=== PATIENT | female | born 1935 | race Asian ===

== ENCOUNTER 2017-11-30 23:35 | Inpatient (IN) | payer MEDICARE ==
[~2017-11-30] VITALS: Ht 157.5 cm; Wt 73.2 kg
[2017-11-30] MEDS ORDERED: LOVA20 PO (23:55)
[2017-11-30] MEDS ORDERED: AZIL1TAB3 PO (23:55)
[2017-11-30] MEDS ORDERED: LEVO88TA4 PO (23:55)
[2017-11-30] MEDS ORDERED: AMLO-511 PO (23:55)
[2017-11-30] MEDS ORDERED: METF500T4 PO (23:55)
[2017-11-30 23:58] LABS: GLUCOSE,POINT OF CARE 162 MG/DL (70-110)
[2017-12-01 00:26] LABS: BASOPHILS % (AUTO) 0.5 % (0.0-2.0); EOSINOPHILS % (AUTO) 2.2 % (1.0-6.0); HEMATOCRIT 38.8 % (36-46); HEMOGLOBIN 13.1 g/dL (12.0-16.0); LYMPHOCYTES # (AUTO) 2.6 K/uL (1.0-4.8); LYMPHOCYTES % (AUTO) 26.5 % (22.0-44.0); MEAN CORPUSCULAR HEMOGLOBIN 29.3 pg (26.0-34.0); MEAN CORPUSCULAR HGB CONC 33.7 G/dL (31.0-37.0); MEAN CORPUSCULAR VOLUME 87 fL (80-100); MONOCYTES # (AUTO) 0.6 K/uL (0.1-1.0); MONOCYTES % (AUTO) 5.9 % (2.0-9.0); NEUTROPHILS # (AUTO) 6.3 K/uL (1.8-7.7); NEUTROPHILS % (AUTO) 64.9 % (40.0-70.0); PLATELET COUNT (AUTO) 206 K/uL (150-450); RED BLOOD CELL COUNT(AUTO) 4.47 MIL/uL (4.00-5.20); RED CELL DISTRIBUTION WIDTH 14.2 % (11.5-14.5)
[2017-12-01 00:47] LABS: CALCIUM, TOTAL 9.9 mg/dL (8.8-10.5); CREATININE 0.91 mg/dL (0.60-1.30); POTASSIUM 3.5 mmol/L (3.5-5.1)
[2017-12-01 00:52] LABS: ALBUMIN 4.1 g/dL (3.4-5.0); BILIRUBIN,TOTAL 0.3 mg/dL (0.1-1.0); TOTAL PROTEIN, SERUM 8.4 g/dL (6.4-8.2)
[2017-12-01] MEDS ORDERED: ACETAMINOPHEN 325 MG TABLET PO PRN ×2 (02:15→04:45)
[2017-12-01] MEDS ORDERED: ONDANSETRON HCL 4 MG/2 ML VIAL IVP PRN ×2 (02:15→04:45)
[2017-12-01] MEDS ORDERED: 0.9% SODIUM CHLORIDE 10 ML SYRINGE IVP PRN ×2 (02:15→04:45)
[2017-12-01] MEDS ORDERED: NITROGLYCERIN 2% (1 GM=INCH) PACKET TP ONE (02:15)
[2017-12-01] MEDS ORDERED: ASPIRIN 325 MG TABLET PO ONE (02:15)
[2017-12-01 04:05] VITALS: BP 177/76
[2017-12-01 04:13] VITALS: BP 149/78
[2017-12-01] MEDS ORDERED: MAGNESIUM HYDROXIDE SUSPENSION 30 ML UDCUP PO PRN (04:45)
[2017-12-01] MEDS ORDERED: INSULIN ASPART 100 UNITS/ML SQ PRN (04:45)
[2017-12-01] MEDS ORDERED: BISACODYL 10 MG RECTAL RECTAL SUPPOSITORY PR PRN (04:45)
[2017-12-01] MEDS ORDERED: DEXTROSE 50%-WATER 25 GM/50 ML SYRINGE IVP PRN (04:45)
[2017-12-01] MEDS ORDERED: INFLUENZA VIRUS VACCINE QVS 2017-18 (3YR+)/PF 60 MCG/0.5 ML SYRINGE IM ONE (05:15)
[2017-12-01 06:59] LABS: BASOPHILS % (AUTO) 0.9 % (0.0-2.0); EOSINOPHILS % (AUTO) 1.5 % (1.0-6.0); HEMATOCRIT 35.4 % (36-46); HEMOGLOBIN 11.8 g/dL (12.0-16.0); LYMPHOCYTES # (AUTO) 2.4 K/uL (1.0-4.8); LYMPHOCYTES % (AUTO) 27.6 % (22.0-44.0); MEAN CORPUSCULAR HEMOGLOBIN 29.2 pg (26.0-34.0); MEAN CORPUSCULAR HGB CONC 33.4 G/dL (31.0-37.0); MEAN CORPUSCULAR VOLUME 87 fL (80-100); MONOCYTES # (AUTO) 0.4 K/uL (0.1-1.0); MONOCYTES % (AUTO) 4.7 % (2.0-9.0); NEUTROPHILS # (AUTO) 5.7 K/uL (1.8-7.7); NEUTROPHILS % (AUTO) 65.3 % (40.0-70.0); PLATELET COUNT (AUTO) 208 K/uL (150-450); RED BLOOD CELL COUNT(AUTO) 4.05 MIL/uL (4.00-5.20); RED CELL DISTRIBUTION WIDTH 14.2 % (11.5-14.5)
[2017-12-01] MEDS: LEVOTHYROXINE SODIUM 88 MCG TABLET PO SCH (07:05)
[2017-12-01 07:24] LABS: B-TYPE NATRIURETIC PEPTIDE 81 pg/mL (0-100)
[2017-12-01 07:35] LABS: ALANINE AMINOTRANSFERASE 15 U/L (12-78); ALBUMIN 3.7 g/dL (3.4-5.0); ALKALINE PHOSPHATASE 71 U/L (46-116); ANION GAP 5 mmol/L (8-16); ASPARTATE AMINOTRANSFERASE 12 U/L (15-37); BILIRUBIN,TOTAL 0.4 mg/dL (0.1-1.0); CALCIUM, TOTAL 9.5 mg/dL (8.8-10.5); CARBON DIOXIDE 33 mmol/L (22-29); CHLORIDE 100 mmol/L (98-107); CHOL/HDL RATIO 2.9 (3.9-5.7); CHOLESTEROL 162 mg/dL (131-200); FREE T4 (FREE THYROXINE) 1.05 ng/dL (0.76-1.46); GLOMERULAR FILTR. RATE CALC > 60 mL/min (>60); GLUCOSE,RANDOM 111 mg/dL (70-110); HDL CHOLESTEROL 56 mg/dL (40-60); LDL CHOL (CALC.) 96 mg/dL (0-130); PHOSPHORUS 4.2 mg/dL (2.5-4.9); POTASSIUM 3.8 mmol/L (3.5-5.1); SODIUM SERUM 138 mmol/L (136-145); THYROID STIMULATING HORMONE 4.39 uIU/mL (0.36-3.74); TOTAL PROTEIN, SERUM 7.6 g/dL (6.4-8.2); TRIGLYCERIDES 50 mg/dL (15-150); UREA NITROGEN, BLOOD 17 mg/dL (7-18)
[2017-12-01 07:48] VITALS: BP 131/72
[2017-12-01] MEDS: IRBESARTAN 150 MG TABLET PO SCH (08:31)
[2017-12-01] MEDS: PANTOPRAZOLE SODIUM 40 MG DR TABLET PO SCH (08:33)
[2017-12-01] MEDS: ASPIRIN 325 MG EC TABLET PO SCH (08:33)
[2017-12-01] MEDS: LOVASTATIN 20 MG TABLET PO SCH (08:33)
[2017-12-01] MEDS: HEPARIN SODIUM,PORCINE 5,000 UNITS/ML VIAL SQ SCH ×2 (08:34→20:27)
[2017-12-01] MEDS ORDERED: AmLODIPine BESYLATE 5 MG TABLET PO SCH (09:00)
[2017-12-01] MEDS: METOPROLOL TARTRATE 25 MG TABLET PO SCH ×2 (10:50→20:27)
[2017-12-01 11:09] VITALS: BP 154/76
[2017-12-01 15:13] LABS: GLUCOMETER DEV NAME(LOC) 5S 2N; GLUCOSE,POINT OF CARE 82 MG/DL (70-110)
[2017-12-01 15:23] VITALS: BP 152/75
[2017-12-01 20:04] VITALS: BP 154/66
[2017-12-02] VITALS (12 sets, daily range): BP systolic 105–194; BP diastolic 61–92
[2017-12-02] MEDS: LEVOTHYROXINE SODIUM 88 MCG TABLET PO SCH (06:04)
[2017-12-02 06:37] LABS: BASOPHILS % (AUTO) 0.8 % (0.0-2.0); HEMATOCRIT 35.9 % (36-46); HEMOGLOBIN 12.1 g/dL (12.0-16.0); LYMPHOCYTES # (AUTO) 2.3 K/uL (1.0-4.8); LYMPHOCYTES % (AUTO) 35.3 % (22.0-44.0); MEAN CORPUSCULAR HEMOGLOBIN 29.1 pg (26.0-34.0); MEAN CORPUSCULAR HGB CONC 33.6 G/dL (31.0-37.0); MEAN CORPUSCULAR VOLUME 87 fL (80-100); MONOCYTES # (AUTO) 0.4 K/uL (0.1-1.0); MONOCYTES % (AUTO) 6.6 % (2.0-9.0); NEUTROPHILS # (AUTO) 3.5 K/uL (1.8-7.7); NEUTROPHILS % (AUTO) 54.3 % (40.0-70.0); PLATELET COUNT (AUTO) 184 K/uL (150-450); RED BLOOD CELL COUNT(AUTO) 4.15 MIL/uL (4.00-5.20); RED CELL DISTRIBUTION WIDTH 14.1 % (11.5-14.5)
[2017-12-02 08:01] LABS: ALBUMIN 3.5 g/dL (3.4-5.0); BILIRUBIN,TOTAL 0.7 mg/dL (0.1-1.0); CALCIUM, TOTAL 9.1 mg/dL (8.8-10.5); CREATININE 0.9 mg/dL (0.60-1.30); MAGNESIUM 2.1 mg/dL (1.80-2.40); POTASSIUM 3.9 mmol/L (3.5-5.1); TOTAL PROTEIN, SERUM 7.1 g/dL (6.4-8.2)
[2017-12-02] MEDS: HydrALAZINE HCL 20 MG/ML VIAL IVP PRN ×2 (08:34→15:22)
[2017-12-02] MEDS: METOPROLOL TARTRATE 25 MG TABLET PO SCH ×2 (09:00→21:00)
[2017-12-02] MEDS: PANTOPRAZOLE SODIUM 40 MG DR TABLET PO SCH (09:50)
[2017-12-02] MEDS: IRBESARTAN 150 MG TABLET PO SCH (09:50)
[2017-12-02] MEDS: LOVASTATIN 20 MG TABLET PO SCH (09:50)
[2017-12-02] MEDS: HEPARIN SODIUM,PORCINE 5,000 UNITS/ML VIAL SQ SCH (09:50)
[2017-12-02] MEDS: ASPIRIN 325 MG EC TABLET PO SCH (09:50)
[2017-12-02 11:23] LABS: GLUCOMETER DEV NAME(LOC) PVLAB129; GLUCOSE,POINT OF CARE 112 MG/DL (70-110)
[2017-12-02 11:23] LABS: GLUCOMETER DEV NAME(LOC) PVLAB129; GLUCOSE,POINT OF CARE 103 MG/DL (70-110)
[2017-12-02 21:07] LABS: GLUCOMETER DEV NAME(LOC) PVLAB129; GLUCOSE,POINT OF CARE 169 MG/DL (70-110)
[2017-12-03] VITALS (8 sets, daily range): BP systolic 136–175; BP diastolic 62–96
[2017-12-03] MEDS: HEPARIN SODIUM,PORCINE 5,000 UNITS/ML VIAL SQ SCH ×3 (00:38→21:41)
[2017-12-03 07:42] LABS: BASOPHILS % (AUTO) 0.9 % (0.0-2.0); EOSINOPHILS % (AUTO) 2.6 % (1.0-6.0); HEMATOCRIT 37.5 % (36-46); HEMOGLOBIN 12.8 g/dL (12.0-16.0); LYMPHOCYTES % (AUTO) 29.3 % (22.0-44.0); MEAN CORPUSCULAR HEMOGLOBIN 29.5 pg (26.0-34.0); MEAN CORPUSCULAR HGB CONC 34.1 G/dL (31.0-37.0); MEAN CORPUSCULAR VOLUME 87 fL (80-100); MONOCYTES # (AUTO) 0.4 K/uL (0.1-1.0); MONOCYTES % (AUTO) 6.5 % (2.0-9.0); NEUTROPHILS % (AUTO) 60.7 % (40.0-70.0); PLATELET COUNT (AUTO) 200 K/uL (150-450); RED BLOOD CELL COUNT(AUTO) 4.34 MIL/uL (4.00-5.20); RED CELL DISTRIBUTION WIDTH 14.2 % (11.5-14.5)
[2017-12-03 08:09] LABS: ALANINE AMINOTRANSFERASE 14 U/L (12-78); ALBUMIN 3.7 g/dL (3.4-5.0); ALKALINE PHOSPHATASE 65 U/L (46-116); ANION GAP 7 mmol/L (8-16); ASPARTATE AMINOTRANSFERASE 12 U/L (15-37); BILIRUBIN,TOTAL 0.6 mg/dL (0.1-1.0); CALCIUM, TOTAL 9.2 mg/dL (8.8-10.5); CARBON DIOXIDE 32 mmol/L (22-29); CHLORIDE 103 mmol/L (98-107); CREATININE 0.77 mg/dL (0.60-1.30); GLOMERULAR FILTR. RATE CALC > 60 mL/min (>60); GLUCOSE,RANDOM 125 mg/dL (70-110); POTASSIUM 3.5 mmol/L (3.5-5.1); SODIUM SERUM 142 mmol/L (136-145); TOTAL PROTEIN, SERUM 7.5 g/dL (6.4-8.2); UREA NITROGEN, BLOOD 21 mg/dL (7-18)
[2017-12-03] MEDS: METOPROLOL TARTRATE 25 MG TABLET PO SCH ×2 (09:00→21:40)
[2017-12-03] MEDS ORDERED: REGADENOSON 0.4 MG/5 ML PF SYRINGE IVP ONE ×2 (09:58→12:44)
[2017-12-03] MEDS ORDERED: SESTAMIBI TC99M/UD ISOTOPE 1 EA INJ INJ ONE (10:00)
[2017-12-03] MEDS: AmLODIPine BESYLATE 10 MG TABLET PO SCH (11:02)
[2017-12-03] MEDS: LOVASTATIN 20 MG TABLET PO SCH (11:02)
[2017-12-03] MEDS: ASPIRIN 325 MG EC TABLET PO SCH (11:02)
[2017-12-03] MEDS: LEVOTHYROXINE SODIUM 88 MCG TABLET PO SCH (11:02)
[2017-12-03] MEDS: PANTOPRAZOLE SODIUM 40 MG DR TABLET PO SCH (11:03)
[2017-12-03] MEDS: HydrALAZINE HCL 20 MG/ML VIAL IVP PRN (15:57)
[2017-12-03 18:13] LABS: GLUCOMETER DEV NAME(LOC) PVLAB129; GLUCOSE,POINT OF CARE 270 MG/DL (70-110)
[2017-12-03] MEDS ORDERED: HydrALAZINE HCL 25 MG TABLET PO SCH ×2 (21:00)
[2017-12-04 04:48] VITALS: BP 159/89
[2017-12-04 06:16] LABS: EOSINOPHILS % (AUTO) 3.1 % (1.0-6.0); HEMATOCRIT 37.2 % (36-46); HEMOGLOBIN 12.8 g/dL (12.0-16.0); LYMPHOCYTES # (AUTO) 1.9 K/uL (1.0-4.8); LYMPHOCYTES % (AUTO) 26.8 % (22.0-44.0); MEAN CORPUSCULAR HEMOGLOBIN 29.6 pg (26.0-34.0); MEAN CORPUSCULAR HGB CONC 34.3 G/dL (31.0-37.0); MEAN CORPUSCULAR VOLUME 86 fL (80-100); MONOCYTES # (AUTO) 0.4 K/uL (0.1-1.0); MONOCYTES % (AUTO) 6.4 % (2.0-9.0); NEUTROPHILS # (AUTO) 4.4 K/uL (1.8-7.7); NEUTROPHILS % (AUTO) 62.7 % (40.0-70.0); PLATELET COUNT (AUTO) 204 K/uL (150-450); RED BLOOD CELL COUNT(AUTO) 4.31 MIL/uL (4.00-5.20)
[2017-12-04] MEDS: LEVOTHYROXINE SODIUM 88 MCG TABLET PO SCH (06:24)
[2017-12-04 07:05] LABS: ALANINE AMINOTRANSFERASE 16 U/L (12-78); ALBUMIN 3.8 g/dL (3.4-5.0); ALKALINE PHOSPHATASE 71 U/L (46-116); ANION GAP 5 mmol/L (8-16); ASPARTATE AMINOTRANSFERASE 16 U/L (15-37); BILIRUBIN,TOTAL 0.7 mg/dL (0.1-1.0); CALCIUM, TOTAL 9.1 mg/dL (8.8-10.5); CARBON DIOXIDE 32 mmol/L (22-29); CHLORIDE 103 mmol/L (98-107); CREATININE 0.86 mg/dL (0.60-1.30); GLOMERULAR FILTR. RATE CALC > 60 mL/min (>60); GLUCOSE,RANDOM 129 mg/dL (70-110); POTASSIUM 3.9 mmol/L (3.5-5.1); SODIUM SERUM 140 mmol/L (136-145); TOTAL PROTEIN, SERUM 7.7 g/dL (6.4-8.2); UREA NITROGEN, BLOOD 20 mg/dL (7-18)
[2017-12-04 07:24] VITALS: BP 137/76
[2017-12-04] MEDS: LOVASTATIN 20 MG TABLET PO SCH (08:28)
[2017-12-04] MEDS: PANTOPRAZOLE SODIUM 40 MG DR TABLET PO SCH (08:28)
[2017-12-04] MEDS: AmLODIPine BESYLATE 10 MG TABLET PO SCH (08:28)
[2017-12-04] MEDS: HEPARIN SODIUM,PORCINE 5,000 UNITS/ML VIAL SQ SCH (08:33)
[2017-12-04 08:53] LABS: B-TYPE NATRIURETIC PEPTIDE 32 pg/mL (0-100)
[2017-12-04] MEDS ORDERED: ASPIRIN 81 MG EC TABLET PO SCH (09:00)
[2017-12-04] MEDS ORDERED: CARVEDILOL 6.25 MG TABLET PO SCH (09:00)
[2017-12-04] MEDS ORDERED: IRBESARTAN 150 MG TABLET PO SCH (09:00)
[2017-12-04 10:29] LABS: GLUCOMETER DEV NAME(LOC) PVLAB129; GLUCOSE,POINT OF CARE 135 MG/DL (70-110)
[2017-12-04 11:40] VITALS: BP 143/75
[2017-12-04] MEDS ORDERED: ASPI81 PO (11:45)
[2017-12-04] MEDS ORDERED: CARV6 PO (11:46)
[2017-12-04] MEDS ORDERED: IRBE150T51 PO (11:49)
[2017-12-04 14:23] LABS: GLUCOMETER DEV NAME(LOC) PVLAB129; GLUCOSE,POINT OF CARE 150 MG/DL (70-110)
[2017-12-05 06:58] LABS: GLUCOMETER DEV NAME(LOC) 5S 1L; GLUCOSE,POINT OF CARE 120 MG/DL (70-110)
[2017-12-05 06:58] LABS: GLUCOMETER DEV NAME(LOC) 5S 1L; GLUCOSE,POINT OF CARE 113 MG/DL (70-110)
[2017-12-05 06:58] LABS: GLUCOMETER DEV NAME(LOC) 5S 1L; GLUCOSE,POINT OF CARE 77 MG/DL (70-110)
[2017-12-05 06:59] LABS: GLUCOMETER DEV NAME(LOC) 5S 1L; GLUCOSE,POINT OF CARE 100 MG/DL (70-110)
[2017-12-05 06:59] LABS: GLUCOMETER DEV NAME(LOC) 5S 1L; GLUCOSE,POINT OF CARE 140 MG/DL (70-110)
[2017-12-06 15:33] LABS: GLUCOMETER DEV NAME(LOC) 5N 2R; GLUCOSE,POINT OF CARE 112 MG/DL (70-110)
== END 2017-12-04 12:45 | disposition home or self-care (01) | DRG 309 ==
LOC: EMS 23:37 → 5S 12-01 02:00
PROVIDERS: ADMIT Internal Medicine; ATTEND Internal Medicine
DX: I48.0 Paroxysmal atrial fibrillation (principal); I20.0 Unstable angina; D64.9 Anemia, unspecified; E11.9 Type 2 diabetes mellitus without complications; E03.9 Hypothyroidism, unspecified; E78.00 Pure hypercholesterolemia, unspecified; I11.9 Hypertensive heart disease without heart failure; E78.5 Hyperlipidemia, unspecified; Z88.0 Allergy status to penicillin; Z88.2 Allergy status to sulfonamides; Z79.899 Other long term (current) drug therapy; Z28.21 Immunization not carried out because of patient refusal
CPT/HCPCS: 78452; 82962; 83036; 83735; 84100; 84439; 84443; 93005; 93017; 93306; 99285; A9500; J0360; J1644; J2785

== ENCOUNTER 2019-02-12 14:50 | Inpatient (IN) | payer MEDICARE, MEDICAID ==
[~2019-02-12] VITALS: Ht 154.9 cm; Wt 80.1 kg
[~2019-02-12 14:50] MED LIST: AMLO-511 PO; ASPI81 PO; CARV6 PO; IRBE150T51 PO; LEVO88TA4 PO; LOVA20 PO; METF-960 PO
[2019-02-12] MEDS ORDERED: AMLO-511 PO (15:56)
[2019-02-12 16:04] LABS: GLUCOSE,POINT OF CARE 108 MG/DL (70-110)
[2019-02-12 16:47] LABS: EOSINOPHILS % (AUTO) 1.9 % (1.0-6.0); HEMATOCRIT 36.1 % (36-46); HEMOGLOBIN 11.4 g/dL (12.0-16.0); LYMPHOCYTES # (AUTO) 1.4 K/uL (1.0-4.8); LYMPHOCYTES % (AUTO) 24.3 % (22.0-44.0); MEAN CORPUSCULAR HEMOGLOBIN 27.8 pg (26.0-34.0); MEAN CORPUSCULAR HGB CONC 31.7 G/dL (31.0-37.0); MEAN CORPUSCULAR VOLUME 88 fL (80-100); MONOCYTES # (AUTO) 0.3 K/uL (0.1-1.0); NEUTROPHILS # (AUTO) 3.8 K/uL (1.8-7.7); NEUTROPHILS % (AUTO) 66.8 % (40.0-70.0); PLATELET COUNT (AUTO) 185 K/uL (150-450); RED BLOOD CELL COUNT(AUTO) 4.11 MIL/uL (4.00-5.20); RED CELL DISTRIBUTION WIDTH 18.5 % (11.5-14.5)
[2019-02-12 17:11] LABS: CALCIUM, TOTAL 8.6 mg/dL (8.8-10.5); CREATININE 0.95 mg/dL (0.60-1.30)
[2019-02-12 17:18] LABS: ALBUMIN 3.6 g/dL (3.4-5.0); BILIRUBIN,TOTAL 0.8 mg/dL (0.1-1.0); TOTAL PROTEIN, SERUM 6.8 g/dL (6.4-8.2)
[2019-02-12] MEDS ORDERED: ACETAMINOPHEN 325 MG TABLET PO PRN ×2 (17:30→20:45)
[2019-02-12] MEDS ORDERED: ONDANSETRON HCL 4 MG/2 ML VIAL IVP PRN (17:30)
[2019-02-12] MEDS ORDERED: FUROSEMIDE 40 MG/4 ML VIAL IVP ONE (17:30)
[2019-02-12] MEDS ORDERED: DEXTROSE 50%-WATER 25 GM/50 ML SYRINGE IVP PRN (20:45)
[2019-02-12] MEDS ORDERED: INSULIN LISPRO 100 UNITS/ML SQ PRN (20:45)
[2019-02-12] MEDS ORDERED: ALBUTEROL SULFATE 2.5 MG/0.5 ML NEB SOLUTION NEB PRN (20:45)
[2019-02-12] MEDS ORDERED: MAGNESIUM HYDROXIDE SUSPENSION 30 ML UDCUP PO PRN (20:45)
[2019-02-12] MEDS: CARVEDILOL 6.25 MG TABLET PO SCH (21:33)
[2019-02-12] MEDS: DOCUSATE SODIUM 100 MG CAPSULE PO SCH (21:33)
[2019-02-12 21:43] VITALS: BP 156/61
[2019-02-12 23:59] LABS: GLUCOMETER DEV NAME(LOC) 5S.2; GLUCOSE,POINT OF CARE 113 MG/DL (70-110)
[2019-02-13 00:05] VITALS: BP 125/74
[2019-02-13 05:35] VITALS: BP 140/57
[2019-02-13 06:22] LABS: ANION GAP 7 mmol/L (8-16); CALCIUM, TOTAL 8.7 mg/dL (8.8-10.5); CARBON DIOXIDE 31 mmol/L (22-29); CHLORIDE 104 mmol/L (98-107); CREATININE 0.86 mg/dL (0.60-1.30); GLUCOSE,RANDOM 94 mg/dL (70-110); POTASSIUM 3.4 mmol/L (3.5-5.1); SODIUM SERUM 142 mmol/L (136-145); UREA NITROGEN, BLOOD 14 mg/dL (7-18)
[2019-02-13 06:32] LABS: GLOMERULAR FILTR. RATE CALC > 60 mL/min (>60)
[2019-02-13 07:38] VITALS: BP 131/71
[2019-02-13] MEDS: ASPIRIN 81 MG CHEWABLE TABLET PO SCH (08:44)
[2019-02-13] MEDS: DOCUSATE SODIUM 100 MG CAPSULE PO SCH ×2 (08:44→21:16)
[2019-02-13] MEDS: CARVEDILOL 6.25 MG TABLET PO SCH ×2 (08:44→21:16)
[2019-02-13] MEDS: FAMOTIDINE 20 MG TABLET PO SCH (08:44)
[2019-02-13] MEDS ORDERED: FUROSEMIDE 40 MG/4 ML VIAL IVP SCH (09:00)
[2019-02-13] MEDS ORDERED: POTASSIUM CHLORIDE 10 MEQ ER TABLET PO ONE (10:30)
[2019-02-13 11:20] VITALS: BP 137/68
[2019-02-13 12:45] LABS: GLUCOMETER DEV NAME(LOC) 5N.1; GLUCOSE,POINT OF CARE 104 MG/DL (70-110)
[2019-02-13 12:45] LABS: GLUCOMETER DEV NAME(LOC) 5N.1; GLUCOSE,POINT OF CARE 109 MG/DL (70-110)
[2019-02-13 15:28] VITALS: BP 152/85
[2019-02-13] MEDS ORDERED: FUROSEMIDE 40 MG/4 ML VIAL IVP ONE (16:00)
[2019-02-13 20:32] VITALS: BP 158/86
[2019-02-14 00:17] VITALS: BP 157/78
[2019-02-14 04:35] VITALS: BP 124/71
[2019-02-14 06:06] LABS: HEMOGLOBIN 10.4 g/dL (12.0-16.0); LYMPHOCYTES # (AUTO) 1.5 K/uL (1.0-4.8); MEAN CORPUSCULAR HEMOGLOBIN 28.3 pg (26.0-34.0); MEAN CORPUSCULAR HGB CONC 32.4 G/dL (31.0-37.0); MEAN CORPUSCULAR VOLUME 87 fL (80-100); MONOCYTES # (AUTO) 0.4 K/uL (0.1-1.0); MONOCYTES % (AUTO) 9.1 % (2.0-9.0); NEUTROPHILS # (AUTO) 2.4 K/uL (1.8-7.7); NEUTROPHILS % (AUTO) 53.9 % (40.0-70.0); PLATELET COUNT (AUTO) 157 K/uL (150-450); RED BLOOD CELL COUNT(AUTO) 3.66 MIL/uL (4.00-5.20); RED CELL DISTRIBUTION WIDTH 18.5 % (11.5-14.5)
[2019-02-14 06:21] LABS: ALBUMIN 3.2 g/dL (3.4-5.0); BILIRUBIN,TOTAL 0.8 mg/dL (0.1-1.0); CALCIUM, TOTAL 8.6 mg/dL (8.8-10.5); CREATININE 1.09 mg/dL (0.60-1.30); POTASSIUM 3.4 mmol/L (3.5-5.1); TOTAL PROTEIN, SERUM 5.8 g/dL (6.4-8.2)
[2019-02-14 07:25] VITALS: BP 147/81
[2019-02-14] MEDS: CARVEDILOL 6.25 MG TABLET PO SCH (07:56)
[2019-02-14] MEDS: DOCUSATE SODIUM 100 MG CAPSULE PO SCH (07:57)
[2019-02-14] MEDS: ASPIRIN 81 MG CHEWABLE TABLET PO SCH (07:57)
[2019-02-14] MEDS: FAMOTIDINE 20 MG TABLET PO SCH (07:57)
[2019-02-14] MEDS ORDERED: FUROSEMIDE 40 MG TABLET PO SCH (09:00)
[2019-02-14] MEDS ORDERED: FUROSEMIDE 20 MG TABLET PO SCH (09:00)
[2019-02-14] MEDS ORDERED: POTASSIUM CHLORIDE 20 MEQ ER TABLET PO ONE (10:30)
[2019-02-14] MEDS ORDERED: FURO40 PO (11:12)
[2019-02-14] MEDS ORDERED: KDUR10 PO (11:13)
[2019-02-14] MEDS ORDERED: APIX5TAB PO (11:13)
[2019-02-14 11:30] VITALS: BP 159/89
[2019-02-14 11:40] LABS: GLUCOMETER DEV NAME(LOC) 5S.2; GLUCOSE,POINT OF CARE 109 MG/DL (70-110)
[2019-02-15 07:24] LABS: GLUCOMETER DEV NAME(LOC) 5N.1; GLUCOSE,POINT OF CARE 91 MG/DL (70-110)
[2019-02-15 07:24] LABS: GLUCOMETER DEV NAME(LOC) 5N.1; GLUCOSE,POINT OF CARE 108 MG/DL (70-110)
== END 2019-02-14 14:25 | disposition home or self-care (01) | DRG 293 ==
LOC: EMS 14:51 → 5S 20:21
PROVIDERS: ADMIT Internal Medicine; ATTEND Internal Medicine
DX: I11.0 Hypertensive heart disease with heart failure (principal); I48.0 Paroxysmal atrial fibrillation; I50.23 Acute on chronic systolic (congestive) heart failure; E11.9 Type 2 diabetes mellitus without complications; E03.9 Hypothyroidism, unspecified; E78.00 Pure hypercholesterolemia, unspecified; E78.5 Hyperlipidemia, unspecified; Z88.0 Allergy status to penicillin; Z88.2 Allergy status to sulfonamides
CPT/HCPCS: 93005; 93306; 96372; 96374; 96375; G0378; J1940

== ENCOUNTER 2019-03-01 10:02 | Inpatient (IN) | payer MEDICARE, MEDICAID ==
[~2019-03-01] VITALS: Ht 154.9 cm; Wt 73.7 kg
[~2019-03-01 10:02] MED LIST changes: -AMLO-511 PO; +APIX5TAB PO; +FURO40 PO; +KDUR10 PO
[2019-03-01] MEDS ORDERED: ASPIRIN 81 MG CHEWABLE TABLET PO ONE (11:00)
[2019-03-01 11:16] LABS: BASOPHILS % (AUTO) 1.1 % (0.0-2.0); EOSINOPHILS % (AUTO) 2.4 % (1.0-6.0); HEMATOCRIT 34.9 % (36-46); HEMOGLOBIN 11.1 g/dL (12.0-16.0); LYMPHOCYTES # (AUTO) 1.3 K/uL (1.0-4.8); LYMPHOCYTES % (AUTO) 25.6 % (22.0-44.0); MEAN CORPUSCULAR HEMOGLOBIN 27.9 pg (26.0-34.0); MEAN CORPUSCULAR HGB CONC 31.8 G/dL (31.0-37.0); MEAN CORPUSCULAR VOLUME 88 fL (80-100); MONOCYTES # (AUTO) 0.4 K/uL (0.1-1.0); MONOCYTES % (AUTO) 7.4 % (2.0-9.0); NEUTROPHILS # (AUTO) 3.3 K/uL (1.8-7.7); NEUTROPHILS % (AUTO) 63.5 % (40.0-70.0); PLATELET COUNT (AUTO) 162 K/uL (150-450); RED BLOOD CELL COUNT(AUTO) 3.98 MIL/uL (4.00-5.20); RED CELL DISTRIBUTION WIDTH 18.1 % (11.5-14.5)
[2019-03-01 11:28] LABS: CREATININE 1.22 mg/dL (0.60-1.30); POTASSIUM 4.5 mmol/L (3.5-5.1)
[2019-03-01 11:32] LABS: APPEARANCE,URINE CLEAR (CLEAR); BILIRUBIN,URINE NEGATIVE (NEGATIVE); GLUCOSE, URINE (UA) NEGATIVE (NEGATIVE); KETONES,URINE NEGATIVE (NEGATIVE); LEUKOCYTE ESTERASE ,URINE TRACE (NEGATIVE); NITRATE,URINE NEGATIVE (NEGATIVE); OCCULT BLOOD,URINE NEGATIVE (NEGATIVE); PH,URINE 5.5 (5.0-8.0); PROTEIN,URINE NEGATIVE (NEGATIVE); UROBILINOGEN,URINE 0.2 mg/dL (<=1.0)
[2019-03-01 11:36] LABS: ALBUMIN 3.8 g/dL (3.4-5.0); BILIRUBIN,TOTAL 0.8 mg/dL (0.1-1.0)
[2019-03-01 11:43] LABS: BACTERIA,URINE None Seen /HPF (None Seen); RBC,URINE None Seen /HPF (0-2); WBC,URINE 0-2 /HPF (0-5)
[2019-03-01] MEDS ORDERED: NITROGLYCERIN 2% (1 GM=INCH) PACKET TP ONE (12:00)
[2019-03-01] MEDS ORDERED: FUROSEMIDE 40 MG/4 ML VIAL IVP ONE (12:00)
[2019-03-01 12:14] LABS: THYROID STIMULATING HORMONE 6.99 uIU/mL (0.36-3.74)
[2019-03-01] MEDS ORDERED: NITROGLYCERIN 0.4 MG SUBLINGUAL TABLET #25 SL ONE (13:15)
[2019-03-01] MEDS ORDERED: ONDANSETRON HCL 4 MG/2 ML VIAL IVP PRN (13:30)
[2019-03-01] MEDS ORDERED: 0.9% SODIUM CHLORIDE 10 ML SYRINGE IVP PRN (13:30)
[2019-03-01] MEDS ORDERED: ACETAMINOPHEN 325 MG TABLET PO PRN (13:30)
[2019-03-01 20:44] VITALS: BP 140/79
[2019-03-02] VITALS (7 sets, daily range): BP systolic 139–159; BP diastolic 79–97
[2019-03-02 06:48] LABS: BASOPHILS % (AUTO) 1.4 % (0.0-2.0); EOSINOPHILS % (AUTO) 3.2 % (1.0-6.0); HEMATOCRIT 31.3 % (36-46); HEMOGLOBIN 10.1 g/dL (12.0-16.0); LYMPHOCYTES # (AUTO) 1.2 K/uL (1.0-4.8); MEAN CORPUSCULAR HGB CONC 32.4 G/dL (31.0-37.0); MEAN CORPUSCULAR VOLUME 87 fL (80-100); MONOCYTES # (AUTO) 0.3 K/uL (0.1-1.0); MONOCYTES % (AUTO) 8.6 % (2.0-9.0); NEUTROPHILS # (AUTO) 2.2 K/uL (1.8-7.7); NEUTROPHILS % (AUTO) 55.8 % (40.0-70.0); PLATELET COUNT (AUTO) 150 K/uL (150-450); RED BLOOD CELL COUNT(AUTO) 3.61 MIL/uL (4.00-5.20); RED CELL DISTRIBUTION WIDTH 17.8 % (11.5-14.5)
[2019-03-02 07:00] LABS: INR 1.1 (0.9-1.1); PROTHROMBIN TIME 11.4 SEC (9.4-11.6)
[2019-03-02 07:28] LABS: ALBUMIN 3.4 g/dL (3.4-5.0); BILIRUBIN,TOTAL 0.9 mg/dL (0.1-1.0); CALCIUM, TOTAL 8.8 mg/dL (8.8-10.5); CREATININE 1.09 mg/dL (0.60-1.30); POTASSIUM 3.7 mmol/L (3.5-5.1); TOTAL PROTEIN, SERUM 6.1 g/dL (6.4-8.2)
[2019-03-02 09:14] LABS: GLUCOMETER DEV NAME(LOC) 5S.1; GLUCOSE,POINT OF CARE 132 MG/DL (70-110)
[2019-03-02 09:14] LABS: GLUCOMETER DEV NAME(LOC) 5S.2; GLUCOSE,POINT OF CARE 92 MG/DL (70-110)
[2019-03-02] MEDS ORDERED: IRBESARTAN 150 MG TABLET PO SCH (11:00)
[2019-03-02] MEDS ORDERED: ALBUTEROL SULFATE 2.5 MG/0.5 ML NEB SOLUTION NEB PRN (11:00)
[2019-03-02] MEDS ORDERED: GLUCAGON,HUMAN RECOMBINANT 1 MG VIAL IM PRN (11:00)
[2019-03-02] MEDS ORDERED: DEXTROSE 50%-WATER 25 GM/50 ML SYG IVP PRN (11:00)
[2019-03-02] MEDS ORDERED: 0.9% SODIUM CHLORIDE 10 ML SYRINGE IVP PRN (11:00)
[2019-03-02] MEDS ORDERED: ZOLPIDEM TARTRATE 5 MG TABLET PO PRN (11:00)
[2019-03-02] MEDS ORDERED: ONDANSETRON HCL 4 MG/2 ML VIAL IVP PRN (11:00)
[2019-03-02] MEDS ORDERED: IPRATROPIUM BROMIDE 0.5 MG/2.5 ML NEB SOLUTION NEB PRN (11:00)
[2019-03-02] MEDS ORDERED: INSULIN LISPRO 100 UNITS/ML SQ PRN ×2 (11:00)
[2019-03-02] MEDS: CARVEDILOL 6.25 MG TABLET PO SCH ×2 (11:54→22:34)
[2019-03-02] MEDS: POTASSIUM CHLORIDE 10 MEQ ER TABLET PO SCH (11:54)
[2019-03-02] MEDS: LEVOTHYROXINE SODIUM 88 MCG TABLET PO SCH (11:54)
[2019-03-02] MEDS: PANTOPRAZOLE SODIUM 40 MG/VIAL IVP SCH (11:54)
[2019-03-02] MEDS: APIXABAN 5 MG TABLET PO SCH ×2 (11:54→22:34)
[2019-03-02] MEDS: ALBUTEROL SULFATE 2.5 MG/0.5 ML NEB SOLUTION NEB SCH ×2 (14:20→21:03)
[2019-03-02] MEDS: IPRATROPIUM BROMIDE 0.5 MG/2.5 ML NEB SOLUTION NEB SCH ×2 (14:20→21:02)
[2019-03-02] MEDS: FUROSEMIDE 20 MG/2 ML VIAL IVP SCH ×2 (16:53→22:36)
[2019-03-02] MEDS: MetFORMIN HCL 500 MG TABLET PO SCH (17:16)
[2019-03-02 17:24] LABS: GLUCOMETER DEV NAME(LOC) 5N.1; GLUCOSE,POINT OF CARE 98 MG/DL (70-110)
[2019-03-02 18:20] LABS: GLUCOMETER DEV NAME(LOC) 5S.2; GLUCOSE,POINT OF CARE 103 MG/DL (70-110)
[2019-03-03] MEDS: ALBUTEROL SULFATE 2.5 MG/0.5 ML NEB SOLUTION NEB SCH ×3 (02:00→14:19)
[2019-03-03] MEDS: IPRATROPIUM BROMIDE 0.5 MG/2.5 ML NEB SOLUTION NEB SCH ×3 (02:00→14:20)
[2019-03-03 05:38] LABS: BASOPHILS % (AUTO) 1.1 % (0.0-2.0); HEMATOCRIT 31.7 % (36-46); HEMOGLOBIN 10.3 g/dL (12.0-16.0); LYMPHOCYTES # (AUTO) 1.5 K/uL (1.0-4.8); LYMPHOCYTES % (AUTO) 32.1 % (22.0-44.0); MEAN CORPUSCULAR HEMOGLOBIN 28.3 pg (26.0-34.0); MEAN CORPUSCULAR HGB CONC 32.6 G/dL (31.0-37.0); MEAN CORPUSCULAR VOLUME 87 fL (80-100); MONOCYTES # (AUTO) 0.4 K/uL (0.1-1.0); MONOCYTES % (AUTO) 8.4 % (2.0-9.0); NEUTROPHILS # (AUTO) 2.6 K/uL (1.8-7.7); NEUTROPHILS % (AUTO) 55.4 % (40.0-70.0); PLATELET COUNT (AUTO) 152 K/uL (150-450); RED BLOOD CELL COUNT(AUTO) 3.65 MIL/uL (4.00-5.20); RED CELL DISTRIBUTION WIDTH 17.8 % (11.5-14.5)
[2019-03-03 05:39] VITALS: BP 154/76
[2019-03-03 05:47] LABS: CALCIUM, TOTAL 8.9 mg/dL (8.8-10.5); CREATININE 1.14 mg/dL (0.60-1.30); MAGNESIUM 2.1 mg/dL (1.80-2.40); POTASSIUM 3.6 mmol/L (3.5-5.1)
[2019-03-03 05:50] LABS: GLUCOMETER DEV NAME(LOC) 5S.2; GLUCOSE,POINT OF CARE 116 MG/DL (70-110)
[2019-03-03 06:40] LABS: GLUCOMETER DEV NAME(LOC) 5S.1; GLUCOSE,POINT OF CARE 136 MG/DL (70-110)
[2019-03-03] MEDS: LEVOTHYROXINE SODIUM 88 MCG TABLET PO SCH (06:42)
[2019-03-03 07:17] VITALS: BP 169/95
[2019-03-03] MEDS: APIXABAN 5 MG TABLET PO SCH (08:21)
[2019-03-03] MEDS: MetFORMIN HCL 500 MG TABLET PO SCH (08:21)
[2019-03-03] MEDS: CARVEDILOL 6.25 MG TABLET PO SCH (08:21)
[2019-03-03] MEDS: POTASSIUM CHLORIDE 10 MEQ ER TABLET PO SCH (08:21)
[2019-03-03] MEDS: FUROSEMIDE 20 MG/2 ML VIAL IVP SCH ×2 (08:22→16:06)
[2019-03-03] MEDS: PANTOPRAZOLE SODIUM 40 MG/VIAL IVP SCH (08:23)
[2019-03-03] MEDS ORDERED: IRBESARTAN 150 MG TABLET PO SCH (09:00)
[2019-03-03] MEDS ORDERED: LOVASTATIN 20 MG TABLET PO SCH (09:00)
[2019-03-03 10:57] VITALS: BP 141/83
[2019-03-03 15:03] VITALS: BP 153/88
[2019-03-04 04:39] LABS: GLUCOMETER DEV NAME(LOC) 5S.2; GLUCOSE,POINT OF CARE 103 MG/DL (70-110)
[2019-03-05 06:39] LABS: GLUCOMETER DEV NAME(LOC) 5S.1; GLUCOSE,POINT OF CARE 139 MG/DL (70-110)
== END 2019-03-03 17:15 | disposition home or self-care (01) | DRG 293 ==
LOC: EMS 10:03 → 5S 18:00
PROVIDERS: ADMIT Internal Medicine; ATTEND Internal Medicine
DX: I11.0 Hypertensive heart disease with heart failure (principal); E11.9 Type 2 diabetes mellitus without complications; I50.33 Acute on chronic diastolic (congestive) heart failure; E78.00 Pure hypercholesterolemia, unspecified; E03.9 Hypothyroidism, unspecified; E78.5 Hyperlipidemia, unspecified; I48.2 Chronic atrial fibrillation; Z88.0 Allergy status to penicillin; Z88.1 Allergy status to other antibiotic agents
CPT/HCPCS: 83735; 84443; 87081; 93005; 94640; 96374; C9113; G0378; J1940

== ENCOUNTER 2019-04-13 08:41 | Emergency (ER) | payer MEDICARE, MEDICAID ==
[~2019-04-13] VITALS: Ht 152.4 cm; Wt 82.3 kg
[~2019-04-13 08:41] MED LIST changes: -ASPI81 PO
[2019-04-13] MEDS ORDERED: DEXTROSE 50%-WATER 25 GM/50 ML SYRINGE IVP ONE (09:00)
[2019-04-13 09:04] LABS: GLUCOSE,POINT OF CARE 42 MG/DL (70-110)
[2019-04-13 09:54] LABS: BASOPHILS % (AUTO) 0.5 % (0.0-2.0); EOSINOPHILS % (AUTO) 0.6 % (1.0-6.0); HEMATOCRIT 30.5 % (36-46); HEMOGLOBIN 9.9 g/dL (12.0-16.0); LYMPHOCYTES # (AUTO) 0.7 K/uL (1.0-4.8); LYMPHOCYTES % (AUTO) 11.9 % (22.0-44.0); MEAN CORPUSCULAR HEMOGLOBIN 28.1 pg (26.0-34.0); MEAN CORPUSCULAR HGB CONC 32.3 G/dL (31.0-37.0); MEAN CORPUSCULAR VOLUME 87 fL (80-100); MONOCYTES # (AUTO) 0.2 K/uL (0.1-1.0); MONOCYTES % (AUTO) 3.8 % (2.0-9.0); NEUTROPHILS # (AUTO) 4.7 K/uL (1.8-7.7); NEUTROPHILS % (AUTO) 83.2 % (40.0-70.0); PLATELET COUNT (AUTO) 137 K/uL (150-450); RED BLOOD CELL COUNT(AUTO) 3.51 MIL/uL (4.00-5.20); RED CELL DISTRIBUTION WIDTH 16.8 % (11.5-14.5)
[2019-04-13 10:04] LABS: CALCIUM, TOTAL 8.1 mg/dL (8.8-10.5); CREATININE 1.51 mg/dL (0.60-1.30); POTASSIUM 4.2 mmol/L (3.5-5.1)
[2019-04-13 10:10] LABS: ALBUMIN 3.5 g/dL (3.4-5.0); BILIRUBIN,TOTAL 0.8 mg/dL (0.1-1.0); TOTAL PROTEIN, SERUM 6.8 g/dL (6.4-8.2)
[2019-04-13 10:13] LABS: APPEARANCE,URINE CLEAR (CLEAR); BILIRUBIN,URINE NEGATIVE (NEGATIVE); GLUCOSE, URINE (UA) 100 mg/dL (NEGATIVE); KETONES,URINE NEGATIVE (NEGATIVE); LEUKOCYTE ESTERASE ,URINE NEGATIVE (NEGATIVE); NITRATE,URINE NEGATIVE (NEGATIVE); OCCULT BLOOD,URINE NEGATIVE (NEGATIVE); PROTEIN,URINE NEGATIVE (NEGATIVE); UROBILINOGEN,URINE 0.2 mg/dL (<=1.0)
[2019-04-13 10:24] LABS: GLUCOSE,POINT OF CARE 122 MG/DL (70-110)
[2019-04-13 10:26] LABS: BACTERIA,URINE None Seen /HPF (None Seen); RBC,URINE None Seen /HPF (0-2); SQUAMOUS EPITHELIAL CELL,UR Rare /LPF (None Seen); WBC,URINE None Seen /HPF (0-5)
[2019-04-13 13:15] VITALS: BP 168/92
== END 2019-04-13 13:18 | disposition home or self-care (01) ==
LOC: EMS 08:43
DX: K59.00 Constipation, unspecified (principal); R18.8 Other ascites; I11.0 Hypertensive heart disease with heart failure; I50.9 Heart failure, unspecified; E11.9 Type 2 diabetes mellitus without complications; I48.91 Unspecified atrial fibrillation; E78.00 Pure hypercholesterolemia, unspecified; E03.9 Hypothyroidism, unspecified; Z88.0 Allergy status to penicillin; Z88.2 Allergy status to sulfonamides; Z79.899 Other long term (current) drug therapy
CPT/HCPCS: 74022; 76700; 93005; 96374

== ENCOUNTER 2019-05-03 04:03 | Inpatient (IN) | payer MEDICARE, MEDICAID ==
[~2019-05-03] VITALS: Ht 154.9 cm; Wt 76.4 kg
[~2019-05-03 04:03] MED LIST changes: -METF-960 PO
[2019-05-03 04:19] LABS: GLUCOSE,POINT OF CARE 84 MG/DL (70-110)
[2019-05-03 06:25] LABS: BASOPHILS % (AUTO) 1.4 % (0.0-2.0); EOSINOPHILS % (AUTO) 1.8 % (1.0-6.0); HEMATOCRIT 31.5 % (36-46); HEMOGLOBIN 9.8 g/dL (12.0-16.0); LYMPHOCYTES % (AUTO) 17.5 % (22.0-44.0); MEAN CORPUSCULAR HEMOGLOBIN 27.4 pg (26.0-34.0); MEAN CORPUSCULAR VOLUME 89 fL (80-100); MONOCYTES # (AUTO) 0.3 K/uL (0.1-1.0); MONOCYTES % (AUTO) 6.1 % (2.0-9.0); NEUTROPHILS # (AUTO) 4.1 K/uL (1.8-7.7); NEUTROPHILS % (AUTO) 73.2 % (40.0-70.0); PLATELET COUNT (AUTO) 118 K/uL (150-450); RED BLOOD CELL COUNT(AUTO) 3.56 MIL/uL (4.00-5.20); RED CELL DISTRIBUTION WIDTH 16.6 % (11.5-14.5)
[2019-05-03 06:36] LABS: CREATININE 1.71 mg/dL (0.60-1.30)
[2019-05-03 06:42] LABS: ALBUMIN 3.5 g/dL (3.4-5.0); BILIRUBIN,TOTAL 1.2 mg/dL (0.1-1.0)
[2019-05-03] MEDS ORDERED: FUROSEMIDE 40 MG/4 ML VIAL IVP ONE (07:15)
[2019-05-03] MEDS ORDERED: ACETAMINOPHEN 325 MG TABLET PO PRN ×2 (08:30→17:30)
[2019-05-03] MEDS ORDERED: ONDANSETRON HCL 4 MG/2 ML VIAL IVP PRN ×2 (08:30→17:30)
[2019-05-03] MEDS ORDERED: MORPHINE SULFATE 2 MG/ML SYRINGE IVP PRN (17:30)
[2019-05-03] MEDS ORDERED: MAGNESIUM HYDROXIDE SUSPENSION 30 ML UDCUP PO PRN (17:30)
[2019-05-03] MEDS ORDERED: ZOLPIDEM TARTRATE 5 MG TABLET PO PRN (17:30)
[2019-05-03] MEDS ORDERED: BISACODYL 10 MG RECTAL RECTAL SUPPOSITORY PR PRN (17:30)
[2019-05-03] MEDS ORDERED: HYDROCODONE/ACETAMINOPHEN 5-325 MG TABLET PO PRN (17:30)
[2019-05-03 18:52] VITALS: BP 157/94
[2019-05-03 19:32] VITALS: BP 160/94
[2019-05-03] MEDS: DOCUSATE SODIUM 100 MG CAPSULE PO SCH (19:41)
[2019-05-03] MEDS: FUROSEMIDE 20 MG/2 ML VIAL IVP SCH (19:41)
[2019-05-03] MEDS: CARVEDILOL 6.25 MG TABLET PO SCH (19:41)
[2019-05-03] MEDS: APIXABAN 5 MG TABLET PO SCH (20:46)
[2019-05-03 21:15] VITALS: BP 119/67
[2019-05-03 23:39] VITALS: BP 104/63
[2019-05-04 04:48] VITALS: BP 132/69
[2019-05-04] MEDS ORDERED: LEVOTHYROXINE SODIUM 88 MCG TABLET PO SCH (06:30)
[2019-05-04 07:55] VITALS: BP 142/80
[2019-05-04] MEDS: CARVEDILOL 6.25 MG TABLET PO SCH ×2 (08:58→20:43)
[2019-05-04] MEDS: PANTOPRAZOLE SODIUM 40 MG DR TABLET PO SCH (08:58)
[2019-05-04] MEDS: LOVASTATIN 20 MG TABLET PO SCH (08:58)
[2019-05-04] MEDS: DOCUSATE SODIUM 100 MG CAPSULE PO SCH ×2 (08:58→20:43)
[2019-05-04] MEDS: APIXABAN 5 MG TABLET PO SCH ×2 (08:58→20:43)
[2019-05-04] MEDS: ASPIRIN 81 MG EC TABLET PO SCH (08:59)
[2019-05-04] MEDS: FUROSEMIDE 20 MG/2 ML VIAL IVP SCH (08:59)
[2019-05-04] MEDS: IRBESARTAN 150 MG TABLET PO SCH (10:43)
[2019-05-04 11:18] VITALS: BP 141/77
[2019-05-04 12:57] LABS: BASOPHILS % (AUTO) 0.8 % (0.0-2.0); EOSINOPHILS % (AUTO) 2.8 % (1.0-6.0); HEMATOCRIT 29.4 % (36-46); HEMOGLOBIN 9.3 g/dL (12.0-16.0); LYMPHOCYTES % (AUTO) 22.1 % (22.0-44.0); MEAN CORPUSCULAR HEMOGLOBIN 27.9 pg (26.0-34.0); MEAN CORPUSCULAR HGB CONC 31.7 G/dL (31.0-37.0); MEAN CORPUSCULAR VOLUME 88 fL (80-100); MONOCYTES # (AUTO) 0.4 K/uL (0.1-1.0); NEUTROPHILS # (AUTO) 2.9 K/uL (1.8-7.7); NEUTROPHILS % (AUTO) 66.3 % (40.0-70.0); PLATELET COUNT (AUTO) 105 K/uL (150-450); RED BLOOD CELL COUNT(AUTO) 3.35 MIL/uL (4.00-5.20); RED CELL DISTRIBUTION WIDTH 16.9 % (11.5-14.5)
[2019-05-04 13:13] LABS: CALCIUM, TOTAL 8.6 mg/dL (8.8-10.5); CREATININE 1.67 mg/dL (0.60-1.30)
[2019-05-04 13:20] LABS: THYROID STIMULATING HORMONE 6.98 uIU/mL (0.36-3.74); TOTAL PROTEIN, SERUM 6.3 g/dL (6.4-8.2)
[2019-05-04] MEDS: SPIRONOLACTONE 25 MG TABLET PO SCH (14:12)
[2019-05-04 16:17] VITALS: BP 124/76
[2019-05-04 19:47] VITALS: BP 137/75
[2019-05-04] MEDS: FUROSEMIDE 40 MG/4 ML VIAL IVP SCH (20:43)
[2019-05-05 00:26] VITALS: BP 155/88
[2019-05-05 04:57] VITALS: BP 157/94
[2019-05-05 05:47] LABS: BASOPHILS % (AUTO) 1.1 % (0.0-2.0); EOSINOPHILS % (AUTO) 2.8 % (1.0-6.0); HEMATOCRIT 28.3 % (36-46); LYMPHOCYTES # (AUTO) 1.1 K/uL (1.0-4.8); LYMPHOCYTES % (AUTO) 25.6 % (22.0-44.0); MEAN CORPUSCULAR HEMOGLOBIN 27.9 pg (26.0-34.0); MEAN CORPUSCULAR HGB CONC 31.9 G/dL (31.0-37.0); MEAN CORPUSCULAR VOLUME 88 fL (80-100); MONOCYTES # (AUTO) 0.4 K/uL (0.1-1.0); MONOCYTES % (AUTO) 9.7 % (2.0-9.0); NEUTROPHILS # (AUTO) 2.7 K/uL (1.8-7.7); NEUTROPHILS % (AUTO) 60.8 % (40.0-70.0); PLATELET COUNT (AUTO) 112 K/uL (150-450); RED BLOOD CELL COUNT(AUTO) 3.23 MIL/uL (4.00-5.20); RED CELL DISTRIBUTION WIDTH 16.2 % (11.5-14.5)
[2019-05-05 06:14] LABS: ALBUMIN 3.1 g/dL (3.4-5.0); BILIRUBIN,TOTAL 1.1 mg/dL (0.1-1.0); CALCIUM, TOTAL 8.6 mg/dL (8.8-10.5); CREATININE 1.58 mg/dL (0.60-1.30); TOTAL PROTEIN, SERUM 6.2 g/dL (6.4-8.2)
[2019-05-05] MEDS ORDERED: LEVOTHYROXINE SODIUM 100 MCG TABLET PO SCH (06:30)
[2019-05-05] MEDS: ASPIRIN 81 MG EC TABLET PO SCH (07:41)
[2019-05-05] MEDS: FUROSEMIDE 40 MG/4 ML VIAL IVP SCH (07:41)
[2019-05-05] MEDS: IRBESARTAN 150 MG TABLET PO SCH (07:41)
[2019-05-05] MEDS: PANTOPRAZOLE SODIUM 40 MG DR TABLET PO SCH (07:42)
[2019-05-05] MEDS: SPIRONOLACTONE 25 MG TABLET PO SCH (07:42)
[2019-05-05] MEDS: APIXABAN 5 MG TABLET PO SCH (07:42)
[2019-05-05] MEDS: LOVASTATIN 20 MG TABLET PO SCH (07:42)
[2019-05-05] MEDS: CARVEDILOL 6.25 MG TABLET PO SCH (07:42)
[2019-05-05] MEDS: DOCUSATE SODIUM 100 MG CAPSULE PO SCH (07:42)
[2019-05-05 07:48] VITALS: BP 160/92
[2019-05-05 11:43] VITALS: BP 144/81
[2019-05-05 15:25] VITALS: BP 152/79
== END 2019-05-05 17:35 | disposition home or self-care (01) | DRG 291 ==
LOC: EMS 04:06 → 5S 17:21
PROVIDERS: ADMIT Hospitalist; ATTEND Hospitalist
DX: I13.0 Hypertensive heart and chronic kidney disease with heart failure and stage 1 through stage 4 chronic kidney disease, or unspecified chronic kidney disease (principal); I50.31 Acute diastolic (congestive) heart failure; N18.3 Chronic kidney disease, stage 3 (moderate); I48.2 Chronic atrial fibrillation; E78.5 Hyperlipidemia, unspecified; E11.22 Type 2 diabetes mellitus with diabetic chronic kidney disease; E78.00 Pure hypercholesterolemia, unspecified; E89.0 Postprocedural hypothyroidism; Z88.0 Allergy status to penicillin; Z88.2 Allergy status to sulfonamides; Z79.899 Other long term (current) drug therapy; Z79.01 Long term (current) use of anticoagulants
CPT/HCPCS: 76700; 84443; 93005; 93306; G0378; J1940

== ENCOUNTER 2019-12-03 15:41 | Inpatient (IN) | payer MEDICARE, MEDICAID ==
[~2019-12-03] VITALS: Ht 162.6 cm; Wt 86.0 kg
[2019-12-03] MEDS ORDERED: DOCU-202 PO (15:56)
[2019-12-03] MEDS ORDERED: IRBE150T51 PO (15:56)
[2019-12-03] MEDS ORDERED: LEVO125 PO (15:56)
[2019-12-03] MEDS ORDERED: FERR-82 PO (15:56)
[2019-12-03] MEDS ORDERED: APIX2.5T PO (15:56)
[2019-12-03 15:58] LABS: GLUCOSE,POINT OF CARE 162 MG/DL (70-110)
[2019-12-03 19:10] LABS: EOSINOPHILS % (AUTO) 1.1 % (1.0-6.0); HEMATOCRIT 35.1 % (36-46); HEMOGLOBIN 11.2 g/dL (12.0-16.0); LYMPHOCYTES # (AUTO) 0.9 K/uL (1.0-4.8); LYMPHOCYTES % (AUTO) 15.7 % (22.0-44.0); MEAN CORPUSCULAR HEMOGLOBIN 29.4 pg (26.0-34.0); MEAN CORPUSCULAR HGB CONC 31.9 G/dL (31.0-37.0); MEAN CORPUSCULAR VOLUME 92 fL (80-100); MONOCYTES # (AUTO) 0.4 K/uL (0.1-1.0); NEUTROPHILS # (AUTO) 4.1 K/uL (1.8-7.7); NEUTROPHILS % (AUTO) 74.2 % (40.0-70.0); PLATELET COUNT (AUTO) 136 K/uL (150-450); RED BLOOD CELL COUNT(AUTO) 3.82 MIL/uL (4.00-5.20); RED CELL DISTRIBUTION WIDTH 17.3 % (11.5-14.5)
[2019-12-03 19:19] LABS: CALCIUM, TOTAL 8.5 mg/dL (8.8-10.5); CREATININE 1.79 mg/dL (0.60-1.30); POTASSIUM 4.4 mmol/L (3.5-5.1)
[2019-12-03 19:32] LABS: INR 1.2 (0.9-1.1); PROTHROMBIN TIME 12.1 SEC (9.4-11.6)
[2019-12-03 19:34] LABS: ALBUMIN 3.4 g/dL (3.4-5.0); BILIRUBIN,TOTAL 0.8 mg/dL (0.1-1.0); FREE T4 (FREE THYROXINE) 1.24 ng/dL (0.76-1.46); THYROID STIMULATING HORMONE 11.37 uIU/mL (0.36-3.74); TOTAL PROTEIN, SERUM 7.3 g/dL (6.4-8.2)
[2019-12-03] MEDS ORDERED: ACETAMINOPHEN 325 MG TABLET PO PRN (19:45)
[2019-12-03] MEDS ORDERED: BISACODYL 10 MG RECTAL RECTAL SUPPOSITORY PR PRN (19:45)
[2019-12-03] MEDS ORDERED: DEXTROSE 50%-WATER 25 GM/50 ML SYRINGE IVP PRN (20:00)
[2019-12-03] MEDS ORDERED: FUROSEMIDE 40 MG/4 ML VIAL IVP SCH (20:00)
[2019-12-03] MEDS ORDERED: AZITHROMYCIN 500 MG/NS 250 ML IV ONE (20:00)
[2019-12-03] MEDS ORDERED: NITROGLYCERIN 2% (1 GM=INCH) PACKET TP ONE (20:00)
[2019-12-03] MEDS ORDERED: FUROSEMIDE 40 MG/4 ML VIAL IVP ONE (20:00)
[2019-12-03 20:07] LABS: APPEARANCE,URINE CLEAR (CLEAR); BILIRUBIN,URINE NEGATIVE (NEGATIVE); GLUCOSE, URINE (UA) NEGATIVE (NEGATIVE); KETONES,URINE NEGATIVE (NEGATIVE); LEUKOCYTE ESTERASE ,URINE SMALL (NEGATIVE); NITRATE,URINE NEGATIVE (NEGATIVE); OCCULT BLOOD,URINE NEGATIVE (NEGATIVE); PH,URINE 5.5 (5.0-8.0); PROTEIN,URINE POS 1+ (NEGATIVE)
[2019-12-03] MEDS ORDERED: VANCOMYCIN HCL 1 GM/D5% WATER 200 ML IV ONE (20:15)
[2019-12-03 20:23] LABS: RBC,URINE 0-2 /HPF (0-2); WBC,URINE 0-2 /HPF (0-5)
[2019-12-03 20:25] LABS: BACTERIA,URINE Few /HPF (None Seen); SQUAMOUS EPITHELIAL CELL,UR Few /LPF (None Seen)
[2019-12-03 22:31] VITALS: BP 151/96
[2019-12-03] MEDS: CARVEDILOL 6.25 MG TABLET PO SCH (22:44)
[2019-12-03] MEDS: DOCUSATE SODIUM 100 MG CAPSULE PO SCH (22:44)
[2019-12-03] MEDS: APIXABAN 2.5 MG TABLET PO SCH (22:44)
[2019-12-03] MEDS: INSULIN LISPRO 100 UNITS/ML SQ PRN (22:55)
[2019-12-04] VITALS (7 sets, daily range): BP systolic 99–142; BP diastolic 56–84
[2019-12-04 00:22] LABS: GLUCOMETER DEV NAME(LOC) 5N.1; GLUCOSE,POINT OF CARE 149 MG/DL (70-110)
[2019-12-04] MEDS: LEVOTHYROXINE SODIUM 125 MCG TABLET PO SCH (06:11)
[2019-12-04 07:04] LABS: GLUCOMETER DEV NAME(LOC) 5S.1; GLUCOSE,POINT OF CARE 99 MG/DL (70-110)
[2019-12-04 07:56] LABS: CALCIUM, TOTAL 8.5 mg/dL (8.8-10.5); CREATININE 1.72 mg/dL (0.60-1.30); POTASSIUM 4.3 mmol/L (3.5-5.1)
[2019-12-04] MEDS ORDERED: SODIUM CHLORIDE 0.9% 250 ML IV ONE (08:00)
[2019-12-04] MEDS: APIXABAN 2.5 MG TABLET PO SCH ×2 (08:45→21:03)
[2019-12-04] MEDS: DOCUSATE SODIUM 100 MG CAPSULE PO SCH ×2 (08:45→21:03)
[2019-12-04] MEDS: CARVEDILOL 6.25 MG TABLET PO SCH ×2 (08:45→21:03)
[2019-12-04] MEDS: FUROSEMIDE 40 MG/4 ML VIAL IVP SCH (08:45)
[2019-12-04] MEDS: VANCOMYCIN HCL 1 GM/D5% WATER 200 ML IV SCH (08:45)
[2019-12-04] MEDS: FAMOTIDINE 20 MG TABLET PO SCH (08:45)
[2019-12-04] MEDS: INSULIN LISPRO 100 UNITS/ML SQ PRN (12:09)
[2019-12-04 13:02] LABS: GLUCOMETER DEV NAME(LOC) 5N.1; GLUCOSE,POINT OF CARE 145 MG/DL (70-110)
[2019-12-05 04:43] VITALS: BP 128/65
[2019-12-05] MEDS: LEVOTHYROXINE SODIUM 125 MCG TABLET PO SCH (05:36)
[2019-12-05 06:32] LABS: CALCIUM, TOTAL 8.8 mg/dL (8.8-10.5); CREATININE 1.89 mg/dL (0.60-1.30); POTASSIUM 4.2 mmol/L (3.5-5.1)
[2019-12-05] MEDS: VANCOMYCIN HCL 1 GM/D5% WATER 200 ML IV SCH (07:46)
[2019-12-05 07:59] VITALS: BP 141/80
[2019-12-05 08:01] LABS: GLUCOMETER DEV NAME(LOC) 5S.1; GLUCOSE,POINT OF CARE 101 MG/DL (70-110)
[2019-12-05 08:01] LABS: GLUCOMETER DEV NAME(LOC) 5N.1; GLUCOSE,POINT OF CARE 119 MG/DL (70-110)
[2019-12-05 08:01] LABS: GLUCOMETER DEV NAME(LOC) 5N.1; GLUCOSE,POINT OF CARE 155 MG/DL (70-110)
[2019-12-05] MEDS: DOCUSATE SODIUM 100 MG CAPSULE PO SCH ×2 (08:18→20:54)
[2019-12-05] MEDS: FUROSEMIDE 40 MG/4 ML VIAL IVP SCH (08:19)
[2019-12-05] MEDS: FAMOTIDINE 20 MG TABLET PO SCH (08:19)
[2019-12-05] MEDS: APIXABAN 2.5 MG TABLET PO SCH ×2 (08:19→20:54)
[2019-12-05] MEDS: CARVEDILOL 6.25 MG TABLET PO SCH ×2 (08:19→20:54)
[2019-12-05 11:26] VITALS: BP 100/59
[2019-12-05 11:58] LABS: GLUCOMETER DEV NAME(LOC) 5S.1; GLUCOSE,POINT OF CARE 145 MG/DL (70-110)
[2019-12-05] MEDS: INSULIN LISPRO 100 UNITS/ML SQ PRN ×2 (12:02→18:02)
[2019-12-05 15:52] VITALS: BP 108/68
[2019-12-05 17:23] LABS: GLUCOMETER DEV NAME(LOC) 5S.1; GLUCOSE,POINT OF CARE 159 MG/DL (70-110)
[2019-12-05 19:53] VITALS: BP 148/87
[2019-12-05 23:49] VITALS: BP 128/73
[2019-12-06 04:42] VITALS: BP 139/87
[2019-12-06] MEDS: LEVOTHYROXINE SODIUM 125 MCG TABLET PO SCH (05:24)
[2019-12-06 07:17] LABS: BASOPHILS % (AUTO) 1.2 % (0.0-2.0); HEMATOCRIT 30.1 % (36-46); HEMOGLOBIN 9.9 g/dL (12.0-16.0); LYMPHOCYTES # (AUTO) 0.8 K/uL (1.0-4.8); LYMPHOCYTES % (AUTO) 20.1 % (22.0-44.0); MEAN CORPUSCULAR HEMOGLOBIN 29.5 pg (26.0-34.0); MEAN CORPUSCULAR HGB CONC 32.7 G/dL (31.0-37.0); MEAN CORPUSCULAR VOLUME 90 fL (80-100); MONOCYTES # (AUTO) 0.4 K/uL (0.1-1.0); MONOCYTES % (AUTO) 10.4 % (2.0-9.0); NEUTROPHILS # (AUTO) 2.6 K/uL (1.8-7.7); NEUTROPHILS % (AUTO) 65.3 % (40.0-70.0); PLATELET COUNT (AUTO) 126 K/uL (150-450); RED BLOOD CELL COUNT(AUTO) 3.35 MIL/uL (4.00-5.20); RED CELL DISTRIBUTION WIDTH 16.6 % (11.5-14.5)
[2019-12-06 07:36] LABS: CALCIUM, TOTAL 8.6 mg/dL (8.8-10.5); CREATININE 1.87 mg/dL (0.60-1.30); MAGNESIUM 2.5 mg/dL (1.80-2.40); POTASSIUM 3.9 mmol/L (3.5-5.1); VANCOMYCIN,RANDOM 19.7 mcg/mL (25.0-50.0)
[2019-12-06 08:00] VITALS: BP 140/80
[2019-12-06] MEDS: DOCUSATE SODIUM 100 MG CAPSULE PO SCH ×2 (09:00→19:46)
[2019-12-06] MEDS: APIXABAN 2.5 MG TABLET PO SCH ×2 (09:04→19:46)
[2019-12-06] MEDS: CARVEDILOL 6.25 MG TABLET PO SCH ×2 (09:04→19:46)
[2019-12-06] MEDS: FUROSEMIDE 40 MG/4 ML VIAL IVP SCH (09:04)
[2019-12-06] MEDS: FAMOTIDINE 20 MG TABLET PO SCH (09:04)
[2019-12-06] MEDS: VANCOMYCIN HCL 1 GM/D5% WATER 200 ML IV SCH (09:04)
[2019-12-06 11:24] LABS: GLUCOMETER DEV NAME(LOC) 5N.1; GLUCOSE,POINT OF CARE 99 MG/DL (70-110)
[2019-12-06 12:00] VITALS: BP 126/77
[2019-12-06 16:00] VITALS: BP 152/89
[2019-12-06 19:14] LABS: GLUCOMETER DEV NAME(LOC) 5N.1; GLUCOSE,POINT OF CARE 117 MG/DL (70-110)
[2019-12-06 19:50] VITALS: BP 144/69
[2019-12-07 04:22] VITALS: BP 133/72
[2019-12-07] MEDS: LEVOTHYROXINE SODIUM 125 MCG TABLET PO SCH (05:21)
[2019-12-07 05:25] LABS: GLUCOMETER DEV NAME(LOC) 5N.1; GLUCOSE,POINT OF CARE 183 MG/DL (70-110)
[2019-12-07 07:40] VITALS: BP 144/93
[2019-12-07] MEDS: FAMOTIDINE 20 MG TABLET PO SCH (08:35)
[2019-12-07] MEDS: FUROSEMIDE 40 MG/4 ML VIAL IVP SCH (08:35)
[2019-12-07] MEDS: CARVEDILOL 6.25 MG TABLET PO SCH ×2 (08:35→21:03)
[2019-12-07] MEDS: DOCUSATE SODIUM 100 MG CAPSULE PO SCH ×2 (08:36→21:03)
[2019-12-07] MEDS: APIXABAN 2.5 MG TABLET PO SCH ×2 (08:36→21:03)
[2019-12-07] MEDS: VANCOMYCIN HCL 750 MG in DEXTROSE 5%-WATER 250 ML IV SCH (09:21)
[2019-12-07 12:03] VITALS: BP 122/76
[2019-12-07 12:22] LABS: GLUCOMETER DEV NAME(LOC) 5S.1; GLUCOSE,POINT OF CARE 115 MG/DL (70-110)
[2019-12-07] MEDS ORDERED: FUROSEMIDE 20 MG/2 ML VIAL IVP SCH (12:45)
[2019-12-07 13:39] LABS: GLUCOMETER DEV NAME(LOC) 5N.1; GLUCOSE,POINT OF CARE 129 MG/DL (70-110)
[2019-12-07 16:00] VITALS: BP 117/73
[2019-12-07] MEDS: FUROSEMIDE 20 MG/2 ML VIAL IVP SCH ×2 (17:19→23:35)
[2019-12-07 19:44] VITALS: BP 134/72
[2019-12-07 23:55] VITALS: BP 120/76
[2019-12-08 05:14] VITALS: BP 120/73
[2019-12-08] MEDS: FUROSEMIDE 20 MG/2 ML VIAL IVP SCH ×3 (05:54→18:03)
[2019-12-08] MEDS: LEVOTHYROXINE SODIUM 125 MCG TABLET PO SCH (05:54)
[2019-12-08 07:46] LABS: GLUCOMETER DEV NAME(LOC) 5S.1; GLUCOSE,POINT OF CARE 133 MG/DL (70-110)
[2019-12-08 07:46] LABS: GLUCOMETER DEV NAME(LOC) 5S.1; GLUCOSE,POINT OF CARE 99 MG/DL (70-110)
[2019-12-08 07:46] LABS: GLUCOMETER DEV NAME(LOC) 5S.1; GLUCOSE,POINT OF CARE 119 MG/DL (70-110)
[2019-12-08 07:49] VITALS: BP 112/71
[2019-12-08] MEDS: CARVEDILOL 6.25 MG TABLET PO SCH ×2 (08:45→20:58)
[2019-12-08] MEDS: APIXABAN 2.5 MG TABLET PO SCH ×2 (08:45→20:58)
[2019-12-08] MEDS: DOCUSATE SODIUM 100 MG CAPSULE PO SCH ×2 (08:45→20:58)
[2019-12-08] MEDS: VANCOMYCIN HCL 750 MG in DEXTROSE 5%-WATER 250 ML IV SCH (08:48)
[2019-12-08 11:54] VITALS: BP 120/77
[2019-12-08 12:14] LABS: GLUCOMETER DEV NAME(LOC) 5N.1; GLUCOSE,POINT OF CARE 114 MG/DL (70-110)
[2019-12-08 16:24] VITALS: BP 127/75
[2019-12-08 18:27] LABS: GLUCOMETER DEV NAME(LOC) 5N.1; GLUCOSE,POINT OF CARE 169 MG/DL (70-110)
[2019-12-08 19:30] VITALS: BP 112/50
[2019-12-08] MEDS: INSULIN LISPRO 100 UNITS/ML SQ PRN (21:02)
[2019-12-09] VITALS: BP 119/65
[2019-12-09 04:23] VITALS: BP 115/67
[2019-12-09] MEDS: FUROSEMIDE 20 MG/2 ML VIAL IVP SCH ×5 (06:23→23:04)
[2019-12-09] MEDS: LEVOTHYROXINE SODIUM 125 MCG TABLET PO SCH (06:24)
[2019-12-09 06:37] LABS: EOSINOPHILS % (AUTO) 3.9 % (1.0-6.0); HEMATOCRIT 30.5 % (36-46); HEMOGLOBIN 9.9 g/dL (12.0-16.0); LYMPHOCYTES # (AUTO) 0.8 K/uL (1.0-4.8); LYMPHOCYTES % (AUTO) 19.3 % (22.0-44.0); MEAN CORPUSCULAR HEMOGLOBIN 29.2 pg (26.0-34.0); MEAN CORPUSCULAR HGB CONC 32.6 G/dL (31.0-37.0); MEAN CORPUSCULAR VOLUME 89 fL (80-100); MONOCYTES # (AUTO) 0.5 K/uL (0.1-1.0); MONOCYTES % (AUTO) 10.6 % (2.0-9.0); NEUTROPHILS # (AUTO) 2.9 K/uL (1.8-7.7); NEUTROPHILS % (AUTO) 65.2 % (40.0-70.0); PLATELET COUNT (AUTO) 134 K/uL (150-450); RED BLOOD CELL COUNT(AUTO) 3.41 MIL/uL (4.00-5.20); RED CELL DISTRIBUTION WIDTH 16.7 % (11.5-14.5)
[2019-12-09 07:11] LABS: ALBUMIN 3.3 g/dL (3.4-5.0); BILIRUBIN,TOTAL 0.7 mg/dL (0.1-1.0); CALCIUM, TOTAL 8.5 mg/dL (8.8-10.5); CREATININE 1.59 mg/dL (0.60-1.30); MAGNESIUM 2.4 mg/dL (1.80-2.40); POTASSIUM 3.5 mmol/L (3.5-5.1); VANCOMYCIN,RANDOM 22.6 mcg/mL (25.0-50.0)
[2019-12-09 07:55] VITALS: BP 140/85
[2019-12-09 08:39] LABS: GLUCOMETER DEV NAME(LOC) 5S.1; GLUCOSE,POINT OF CARE 111 MG/DL (70-110)
[2019-12-09 08:39] LABS: GLUCOMETER DEV NAME(LOC) 5S.1; GLUCOSE,POINT OF CARE 122 MG/DL (70-110)
[2019-12-09 08:39] LABS: GLUCOMETER DEV NAME(LOC) 5N.1; GLUCOSE,POINT OF CARE 159 MG/DL (70-110)
[2019-12-09] MEDS: CARVEDILOL 6.25 MG TABLET PO SCH ×2 (08:43→21:00)
[2019-12-09] MEDS: APIXABAN 2.5 MG TABLET PO SCH ×2 (08:44→20:59)
[2019-12-09] MEDS: DOCUSATE SODIUM 100 MG CAPSULE PO SCH ×2 (08:44→21:00)
[2019-12-09] MEDS: VANCOMYCIN HCL 500 MG in DEXTROSE 5%-WATER 100 ML IV SCH ×2 (10:04→10:10)
[2019-12-09 11:12] VITALS: BP 121/60
[2019-12-09 12:00] LABS: GLUCOMETER DEV NAME(LOC) 5N.1; GLUCOSE,POINT OF CARE 118 MG/DL (70-110)
[2019-12-09 15:56] VITALS: BP 127/80
[2019-12-09 19:16] LABS: GLUCOMETER DEV NAME(LOC) 5N.1; GLUCOSE,POINT OF CARE 122 MG/DL (70-110)
[2019-12-09 20:35] VITALS: BP 127/85
[2019-12-10 00:40] VITALS: BP 131/69
[2019-12-10 04:45] VITALS: BP 99/57
[2019-12-10 05:17] LABS: GLUCOMETER DEV NAME(LOC) 5N.1; GLUCOSE,POINT OF CARE 111 MG/DL (70-110)
[2019-12-10] MEDS: LEVOTHYROXINE SODIUM 125 MCG TABLET PO SCH (05:52)
[2019-12-10] MEDS: FUROSEMIDE 20 MG/2 ML VIAL IVP SCH ×2 (05:52→12:20)
[2019-12-10] MEDS: INSULIN LISPRO 100 UNITS/ML SQ PRN (06:00)
[2019-12-10 08:00] VITALS: BP 121/60
[2019-12-10 08:16] LABS: CALCIUM, TOTAL 8.8 mg/dL (8.8-10.5); CREATININE 1.49 mg/dL (0.60-1.30); POTASSIUM 3.6 mmol/L (3.5-5.1)
[2019-12-10] MEDS: DOCUSATE SODIUM 100 MG CAPSULE PO SCH (08:44)
[2019-12-10] MEDS: APIXABAN 2.5 MG TABLET PO SCH (08:44)
[2019-12-10] MEDS: CARVEDILOL 6.25 MG TABLET PO SCH (08:44)
[2019-12-10 11:35] VITALS: BP 120/55
[2019-12-10 12:27] LABS: GLUCOMETER DEV NAME(LOC) 5S.1; GLUCOSE,POINT OF CARE 141 MG/DL (70-110)
[2019-12-10 12:28] LABS: GLUCOMETER DEV NAME(LOC) 5N.1; GLUCOSE,POINT OF CARE 127 MG/DL (70-110)
[2019-12-10 12:28] LABS: GLUCOMETER DEV NAME(LOC) 5N.1; GLUCOSE,POINT OF CARE 130 MG/DL (70-110)
[2019-12-10] MEDS ORDERED: FURO40 PO (12:34)
[2019-12-10] MEDS ORDERED: LEVO-72 PO (12:37)
[2019-12-10 15:34] VITALS: BP 102/61
[2019-12-10 15:57] VITALS: BP 91/58
== END 2019-12-10 16:35 | disposition home or self-care (01) | DRG 602 ==
LOC: EMS 15:45 → 5N 21:24
PROVIDERS: ADMIT Internal Medicine; ATTEND Internal Medicine
DX: L03.115 Cellulitis of right lower limb (principal); I50.23 Acute on chronic systolic (congestive) heart failure; I13.0 Hypertensive heart and chronic kidney disease with heart failure and stage 1 through stage 4 chronic kidney disease, or unspecified chronic kidney disease; N17.9 Acute kidney failure, unspecified; I48.0 Paroxysmal atrial fibrillation; E03.9 Hypothyroidism, unspecified; E66.01 Morbid (severe) obesity due to excess calories; N18.3 Chronic kidney disease, stage 3 (moderate); I27.20 Pulmonary hypertension, unspecified; D64.9 Anemia, unspecified; E11.22 Type 2 diabetes mellitus with diabetic chronic kidney disease; E78.5 Hyperlipidemia, unspecified; E78.00 Pure hypercholesterolemia, unspecified; I07.1 Rheumatic tricuspid insufficiency; Z88.0 Allergy status to penicillin; Z79.01 Long term (current) use of anticoagulants; Z88.2 Allergy status to sulfonamides; Z79.899 Other long term (current) drug therapy; Z68.32 Body mass index [BMI] 32.0-32.9, adult
CPT/HCPCS: 51702; 83735; 84439; 84443; 87040; 93005; 93306; J0456; J1940; J3370; J7050; J7060

== ENCOUNTER 2020-01-28 20:27 | Inpatient (IN) | payer MEDICARE, MEDICAID ==
[~2020-01-28] VITALS: Ht 154.9 cm; Wt 77.0 kg
[~2020-01-28 20:27] MED LIST changes: +APIX2.5T PO; -APIX5TAB PO; +DOCU-202 PO; +FERR-82 PO; +LEVO-72 PO; +LEVO125 PO; -LEVO88TA4 PO
[2020-01-28] MEDS ORDERED: INSU100C14 SQ (20:50)
[2020-01-28] MEDS ORDERED: ASCO500 PO (20:50)
[2020-01-28] MEDS ORDERED: ACET-3207 PO (20:50)
[2020-01-28] MEDS ORDERED: CIPR500S5 PO (20:50)
[2020-01-28] MEDS ORDERED: APIX2.5T PO (20:50)
[2020-01-28 21:42] LABS: BASOPHILS % (AUTO) 1.1 % (0.0-2.0); EOSINOPHILS % (AUTO) 3.1 % (1.0-6.0); HEMATOCRIT 22.5 % (36-46); LYMPHOCYTES # (AUTO) 0.7 K/uL (1.0-4.8); LYMPHOCYTES % (AUTO) 10.8 % (22.0-44.0); MEAN CORPUSCULAR HGB CONC 31.2 G/dL (31.0-37.0); MEAN CORPUSCULAR VOLUME 96 fL (80-100); MONOCYTES # (AUTO) 0.6 K/uL (0.1-1.0); MONOCYTES % (AUTO) 8.9 % (2.0-9.0); NEUTROPHILS # (AUTO) 5.2 K/uL (1.8-7.7); NEUTROPHILS % (AUTO) 76.1 % (40.0-70.0); PLATELET COUNT (AUTO) 206 K/uL (150-450); RED BLOOD CELL COUNT(AUTO) 2.34 MIL/uL (4.00-5.20); RED CELL DISTRIBUTION WIDTH 21.6 % (11.5-14.5)
[2020-01-28 21:46] LABS: APPEARANCE,URINE CLEAR (CLEAR); BILIRUBIN,URINE NEGATIVE (NEGATIVE); GLUCOSE, URINE (UA) NEGATIVE (NEGATIVE); KETONES,URINE NEGATIVE (NEGATIVE); LEUKOCYTE ESTERASE ,URINE NEGATIVE (NEGATIVE); NITRATE,URINE NEGATIVE (NEGATIVE); OCCULT BLOOD,URINE NEGATIVE (NEGATIVE); PROTEIN,URINE TRACE (NEGATIVE); UROBILINOGEN,URINE 0.2 mg/dL (<=1.0)
[2020-01-28 21:51] LABS: CALCIUM, TOTAL 7.7 mg/dL (8.8-10.5); CREATININE 1.9 mg/dL (0.60-1.30); POTASSIUM 5.7 mmol/L (3.5-5.1)
[2020-01-28 21:52] LABS: BACTERIA,URINE None Seen /HPF (None Seen); RBC,URINE None Seen /HPF (0-2); SQUAMOUS EPITHELIAL CELL,UR Few /LPF (None Seen); WBC,URINE 0-2 /HPF (0-5)
[2020-01-28 21:54] LABS: INR 1.1 (0.9-1.1); PROTHROMBIN TIME 11.6 SEC (9.4-11.6)
[2020-01-28 21:56] LABS: ALBUMIN 2.8 g/dL (3.4-5.0); BILIRUBIN,TOTAL 0.5 mg/dL (0.1-1.0); MAGNESIUM 3.2 mg/dL (1.80-2.40); TOTAL PROTEIN, SERUM 6.5 g/dL (6.4-8.2)
[2020-01-28 21:58] LABS: LACTIC ACID 0.7 mmol/L (0.4-2.0)
[2020-01-28 21:58] LABS: GLUCOSE,POINT OF CARE 120 MG/DL (70-110)
[2020-01-28 22:07] LABS: % IRON SATURATION 26.4 % (22-44)
[2020-01-28] MEDS ORDERED: SODIUM BICARBONATE [ADULT] 8.4% 50 MEQ/50 ML SYRINGE IVP ONE (22:30)
[2020-01-28] MEDS ORDERED: CALCIUM GLUCONATE 0.465 MEQ/ML 10 ML VIAL IVP ONE (22:30)
[2020-01-28] MEDS ORDERED: INSULIN REGULAR, HUMAN 100 UNITS/ML IVP ONE (22:30)
[2020-01-28] MEDS ORDERED: FUROSEMIDE 20 MG/2 ML VIAL IVP ONE (22:30)
[2020-01-28] MEDS ORDERED: DEXTROSE 50%-WATER 25 GM/50 ML SYRINGE IVP ONE (22:30)
[2020-01-28] MEDS ORDERED: PANTOPRAZOLE SODIUM 40 MG/VIAL IVP ONE (23:45)
[2020-01-29] VITALS (9 sets, daily range): BP systolic 108–150; BP diastolic 48–87
[2020-01-29 01:06] LABS: CALCIUM, TOTAL 7.7 mg/dL (8.8-10.5); CREATININE 1.9 mg/dL (0.60-1.30)
[2020-01-29] MEDS ORDERED: 0.9% SODIUM CHLORIDE 10 ML SYRINGE IVP PRN (01:45)
[2020-01-29] MEDS ORDERED: ACETAMINOPHEN 325 MG TABLET PO PRN ×2 (01:45→09:45)
[2020-01-29] MEDS ORDERED: ONDANSETRON HCL 4 MG/2 ML VIAL IVP PRN (01:45)
[2020-01-29] MEDS ORDERED: OxyCODONE HCL/ACETAMINOPHEN 5-325 MG TABLET PO PRN (09:45)
[2020-01-29] MEDS ORDERED: BISACODYL 10 MG RECTAL RECTAL SUPPOSITORY PR PRN (09:45)
[2020-01-29] MEDS ORDERED: DEXTROSE 50%-WATER 25 GM/50 ML SYRINGE IVP PRN (09:45)
[2020-01-29] MEDS: CARVEDILOL 6.25 MG TABLET PO SCH ×2 (11:40→22:07)
[2020-01-29] MEDS: PANTOPRAZOLE SODIUM 40 MG DR TABLET PO SCH ×2 (11:40→20:45)
[2020-01-29] MEDS: APIXABAN 2.5 MG TABLET PO SCH (20:45)
[2020-01-29] MEDS: FUROSEMIDE 20 MG TABLET PO SCH (20:45)
[2020-01-29] MEDS: DOCUSATE SODIUM 100 MG CAPSULE PO SCH (20:45)
[2020-01-29 21:27] LABS: GLUCOMETER DEV NAME(LOC) 5N.2; GLUCOSE,POINT OF CARE 163 MG/DL (70-110)
[2020-01-29 21:27] LABS: GLUCOMETER DEV NAME(LOC) 5N.2; GLUCOSE,POINT OF CARE 173 MG/DL (70-110)
[2020-01-29 21:27] LABS: GLUCOMETER DEV NAME(LOC) 5N.2; GLUCOSE,POINT OF CARE 162 MG/DL (70-110)
[2020-01-29] MEDS: INSULIN LISPRO 100 UNITS/ML SQ PRN (22:09)
[2020-01-30] VITALS (7 sets, daily range): BP systolic 104–159; BP diastolic 52–86
[2020-01-30] MEDS: LEVOTHYROXINE SODIUM 125 MCG TABLET PO SCH (07:04)
[2020-01-30 08:38] LABS: BASOPHILS % (AUTO) 1.2 % (0.0-2.0); EOSINOPHILS % (AUTO) 2.7 % (1.0-6.0); HEMATOCRIT 26.5 % (36-46); HEMOGLOBIN 8.3 g/dL (12.0-16.0); LYMPHOCYTES # (AUTO) 0.6 K/uL (1.0-4.8); LYMPHOCYTES % (AUTO) 11.1 % (22.0-44.0); MEAN CORPUSCULAR HEMOGLOBIN 30.2 pg (26.0-34.0); MEAN CORPUSCULAR HGB CONC 31.5 G/dL (31.0-37.0); MEAN CORPUSCULAR VOLUME 96 fL (80-100); MONOCYTES # (AUTO) 0.3 K/uL (0.1-1.0); MONOCYTES % (AUTO) 6.3 % (2.0-9.0); NEUTROPHILS # (AUTO) 4.2 K/uL (1.8-7.7); NEUTROPHILS % (AUTO) 78.7 % (40.0-70.0); PLATELET COUNT (AUTO) 182 K/uL (150-450); RED BLOOD CELL COUNT(AUTO) 2.76 MIL/uL (4.00-5.20)
[2020-01-30 08:57] LABS: CALCIUM, TOTAL 8.2 mg/dL (8.8-10.5); CREATININE 2.09 mg/dL (0.60-1.30); POTASSIUM 5.4 mmol/L (3.5-5.1)
[2020-01-30] MEDS ORDERED: FAMOTIDINE 20 MG TABLET PO SCH (09:00)
[2020-01-30] MEDS: DOCUSATE SODIUM 100 MG CAPSULE PO SCH ×2 (09:00→21:00)
[2020-01-30] MEDS: PANTOPRAZOLE SODIUM 40 MG DR TABLET PO SCH ×2 (09:54→21:02)
[2020-01-30] MEDS: APIXABAN 2.5 MG TABLET PO SCH ×2 (09:54→21:02)
[2020-01-30] MEDS: FUROSEMIDE 20 MG TABLET PO SCH ×2 (09:54→21:02)
[2020-01-30] MEDS: CARVEDILOL 6.25 MG TABLET PO SCH ×2 (09:55→21:02)
[2020-01-30] MEDS: INSULIN LISPRO 100 UNITS/ML SQ PRN (18:19)
[2020-01-30 23:13] LABS: GLUCOMETER DEV NAME(LOC) 5S.1; GLUCOSE,POINT OF CARE 108 MG/DL (70-110)
[2020-01-30 23:13] LABS: GLUCOMETER DEV NAME(LOC) 5S.1; GLUCOSE,POINT OF CARE 158 MG/DL (70-110)
[2020-01-30 23:13] LABS: GLUCOMETER DEV NAME(LOC) 5S.1; GLUCOSE,POINT OF CARE 124 MG/DL (70-110)
[2020-01-30 23:13] LABS: GLUCOMETER DEV NAME(LOC) 5S.1; GLUCOSE,POINT OF CARE 151 MG/DL (70-110)
[2020-01-31 04:00] VITALS: BP 146/57
[2020-01-31] MEDS: LEVOTHYROXINE SODIUM 125 MCG TABLET PO SCH (06:34)
[2020-01-31 06:56] LABS: ALBUMIN 2.5 g/dL (3.4-5.0); BASOPHILS % (AUTO) 1.2 % (0.0-2.0); BILIRUBIN,TOTAL 0.6 mg/dL (0.1-1.0); CALCIUM, TOTAL 7.9 mg/dL (8.8-10.5); CREATININE 2.16 mg/dL (0.60-1.30); EOSINOPHILS % (AUTO) 2.8 % (1.0-6.0); HEMATOCRIT 24.2 % (36-46); HEMOGLOBIN 7.7 g/dL (12.0-16.0); LYMPHOCYTES # (AUTO) 0.7 K/uL (1.0-4.8); LYMPHOCYTES % (AUTO) 14.5 % (22.0-44.0); MEAN CORPUSCULAR HEMOGLOBIN 30.3 pg (26.0-34.0); MEAN CORPUSCULAR HGB CONC 31.8 G/dL (31.0-37.0); MEAN CORPUSCULAR VOLUME 95 fL (80-100); MONOCYTES # (AUTO) 0.3 K/uL (0.1-1.0); MONOCYTES % (AUTO) 7.1 % (2.0-9.0); NEUTROPHILS # (AUTO) 3.6 K/uL (1.8-7.7); NEUTROPHILS % (AUTO) 74.4 % (40.0-70.0); PLATELET COUNT (AUTO) 176 K/uL (150-450); RED BLOOD CELL COUNT(AUTO) 2.54 MIL/uL (4.00-5.20); RED CELL DISTRIBUTION WIDTH 21.6 % (11.5-14.5); TOTAL PROTEIN, SERUM 5.9 g/dL (6.4-8.2)
[2020-01-31 07:23] VITALS: BP 131/67
[2020-01-31] MEDS: APIXABAN 2.5 MG TABLET PO SCH ×2 (08:05→20:42)
[2020-01-31] MEDS: CARVEDILOL 6.25 MG TABLET PO SCH ×2 (08:06→20:42)
[2020-01-31] MEDS: FUROSEMIDE 20 MG TABLET PO SCH ×2 (08:06→20:42)
[2020-01-31] MEDS: DOCUSATE SODIUM 100 MG CAPSULE PO SCH ×2 (08:06→20:42)
[2020-01-31] MEDS: PANTOPRAZOLE SODIUM 40 MG DR TABLET PO SCH ×2 (08:06→20:42)
[2020-01-31 10:51] VITALS: BP 116/83
[2020-01-31] MEDS: VITAMIN B COMP/VIT C/FOLIC ACID CAPSULE PO SCH (12:34)
[2020-01-31 15:51] VITALS: BP 118/68
[2020-01-31 17:21] LABS: GLUCOMETER DEV NAME(LOC) 5S.1; GLUCOSE,POINT OF CARE 137 MG/DL (70-110)
[2020-01-31 17:21] LABS: GLUCOMETER DEV NAME(LOC) 5S.1; GLUCOSE,POINT OF CARE 112 MG/DL (70-110)
[2020-01-31] MEDS: FERROUS SULFATE 325 MG EC TABLET PO SCH (17:53)
[2020-01-31 20:00] VITALS: BP 109/56
[2020-02-01 00:11] LABS: GLUCOMETER DEV NAME(LOC) 5S.1; GLUCOSE,POINT OF CARE 145 MG/DL (70-110)
[2020-02-01 01:18] VITALS: BP 129/69
[2020-02-01 04:35] VITALS: BP 130/71
[2020-02-01] MEDS: LEVOTHYROXINE SODIUM 125 MCG TABLET PO SCH (05:11)
[2020-02-01 07:43] VITALS: BP 157/69
[2020-02-01 08:06] LABS: BASOPHILS % (AUTO) 1.1 % (0.0-2.0); HEMATOCRIT 25.8 % (36-46); HEMOGLOBIN 8.2 g/dL (12.0-16.0); LYMPHOCYTES # (AUTO) 0.9 K/uL (1.0-4.8); LYMPHOCYTES % (AUTO) 15.5 % (22.0-44.0); MEAN CORPUSCULAR HEMOGLOBIN 30.2 pg (26.0-34.0); MEAN CORPUSCULAR HGB CONC 31.9 G/dL (31.0-37.0); MEAN CORPUSCULAR VOLUME 95 fL (80-100); MONOCYTES # (AUTO) 0.4 K/uL (0.1-1.0); NEUTROPHILS # (AUTO) 4.1 K/uL (1.8-7.7); NEUTROPHILS % (AUTO) 72.4 % (40.0-70.0); PLATELET COUNT (AUTO) 177 K/uL (150-450); RED BLOOD CELL COUNT(AUTO) 2.72 MIL/uL (4.00-5.20); RED CELL DISTRIBUTION WIDTH 22.1 % (11.5-14.5)
[2020-02-01] MEDS: FERROUS SULFATE 325 MG EC TABLET PO SCH (08:51)
[2020-02-01] MEDS: PANTOPRAZOLE SODIUM 40 MG DR TABLET PO SCH (08:51)
[2020-02-01] MEDS: VITAMIN B COMP/VIT C/FOLIC ACID CAPSULE PO SCH (08:51)
[2020-02-01] MEDS: APIXABAN 2.5 MG TABLET PO SCH (08:51)
[2020-02-01] MEDS: FUROSEMIDE 20 MG TABLET PO SCH (08:51)
[2020-02-01] MEDS: DOCUSATE SODIUM 100 MG CAPSULE PO SCH (09:00)
[2020-02-01] MEDS: CARVEDILOL 6.25 MG TABLET PO SCH (09:02)
[2020-02-01 10:39] VITALS: BP 130/83
[2020-02-01] MEDS ORDERED: FURO-152 PO ×2 (14:21→14:22)
[2020-02-01] MEDS ORDERED: PANT40TA25 PO (14:23)
[2020-02-01] MEDS ORDERED: B CO1CAP6 PO (14:25)
[2020-02-01] MEDS ORDERED: BISA10SU11 PR (14:27)
[2020-02-02 06:38] LABS: GLUCOMETER DEV NAME(LOC) 5S.2A; GLUCOSE,POINT OF CARE 109 MG/DL (70-110)
[2020-02-02 06:39] LABS: GLUCOMETER DEV NAME(LOC) 5N.1; GLUCOSE,POINT OF CARE 168 MG/DL (70-110)
== END 2020-02-01 14:00 | DRG 811 ==
LOC: EMS 20:28 → 5S 01-29 02:11
PROVIDERS: ADMIT Internal Medicine; ATTEND Internal Medicine
PROC: 30233N1 Transfusion of Nonautologous Red Blood Cells into Peripheral Vein, Percutaneous Approach (ICD-10-PCS; principal; 2020-01-29)
DX: D64.9 Anemia, unspecified (principal); E43 Unspecified severe protein-calorie malnutrition; I13.0 Hypertensive heart and chronic kidney disease with heart failure and stage 1 through stage 4 chronic kidney disease, or unspecified chronic kidney disease; I48.20 Chronic atrial fibrillation, unspecified; I08.1 Rheumatic disorders of both mitral and tricuspid valves; I89.0 Lymphedema, not elsewhere classified; E03.9 Hypothyroidism, unspecified; E11.22 Type 2 diabetes mellitus with diabetic chronic kidney disease; I50.9 Heart failure, unspecified; E78.00 Pure hypercholesterolemia, unspecified; E87.5 Hyperkalemia; N18.9 Chronic kidney disease, unspecified; Z79.01 Long term (current) use of anticoagulants; Z79.4 Long term (current) use of insulin; Z68.32 Body mass index [BMI] 32.0-32.9, adult
CPT/HCPCS: 82271; 83540; 83550; 83605; 83735; 86850; 86900; 86901; 86923; 87040; 87081; 93005; 97116; 97162; 97165; 97530; 97535; C9113; J0610; J1815; J1940; J3490; P9016